=== PATIENT | female | born 1955 | race Caucasian/White ===

== ENCOUNTER 2018-09-19 18:07 | Emergency (ER) | payer BC ==
--- NOTE | 2018-09-19 18:33 | ED ---
Upper Extremity Pain - HPI Summary HPI Summary: 63 yo female presents to [facility] with LEFT wrist pain s/p fall. She tells me that about 1 hour [employer] [place] with her hands outstretched. She had immediate pain to her left wrist. Swelling began shortly after. She is right handed. Has not taken anything OTC for her discomfort. Denies numbness or tingling. - History of Current Complaint Chief Complaint: EDExtremityUpper Stated Complaint: LEFT WRIST INJURY PER PT Time Seen by Provider: 09/19/18 18:33 Hx Obtained From: Patient Mechanism Of Injury: Fall From Height Of: - standing Timing: Constant Severity Initially: Moderate Severity Currently: Moderate Pain Location: Wrist - Allergies/Home Medications Allergies/Adverse Reactions: Allergies Allergy/AdvReac Type Severity Reaction Status Date / Time Penicillins Allergy Hives Verified 09/19/18 18:12 Home Medications: Home Medications Venlafaxine CAP (NF) [Effexor CAP (NF)] 75 mg PO DAILY 09/19/18 [History Confirmed 09/19/18] PMH/Surg Hx/FS Hx/Imm Hx Endocrine/Hematology History: Denies: Hx Blood Disorders Cardiovascular History: Denies: Hx Angina, Hx Congestive Heart Failure, Hx Hypertension Respiratory History: Denies: Hx Asthma, Hx Chronic Obstructive Pulmonary Disease (COPD) History: Denies: Hx Dialysis Musculoskeletal History: Denies: Hx Gout Neurological History: Denies: Hx CVA, Hx Headaches Psychiatric History: Reports: Hx Anxiety, Hx Depression Infectious Disease History: No Infectious Disease History: Denies: Traveled Outside the [place] in Last 30 Days - Family History Known Family History: Positive: Hypertension - Social History Occupation: Employed Full-time Lives: With Family Alcohol Use: Occasionally Substance Use Type: Reports: None Smoking Status (MU): Never Smoked Tobacco Review of Systems Constitutional: Negative Respiratory: Negative Gastrointestinal: Negative Genitourinary: Negative Musculoskeletal: Other - Left wrist injury Skin: Negative Neurological: Negative Psychological: Normal All Other Systems Reviewed And Are Negative: Yes Physical Exam - Summary Physical Exam Summary: GENERAL: NAD. WDWN. No pain distress. SKIN: No rashes, sores, lesions, or open wounds. CHEST: No accessory muscle use. Breathing comfortably and in no distress. CV: Pulses intact radial and ulnar. Cap refill <2seconds MSK: LEFT WRIST: Mild edema and TTP about entire wrist. NTTP hand or forearm. Decreased ROM left wrist due to pain. NEURO: Alert. Sensations intact hand and all fingers. PSYCH: Age appropriate behavior. Triage Information Reviewed: Yes Vital Signs On Initial Exam: Initial Vitals Temp Pulse Resp BP Pulse Ox 99.1 F 95 17 150/100 98 09/19/18 18:08 09/19/18 18:08 09/19/18 18:08 09/19/18 18:08 09/19/18 18:08 Vital Signs Reviewed: Yes Procedures - Splinting Left Upper Extremity Hand-Made Type: orthoglass Splint: volar Pre-Proc Neuro Vasc Exam: normal Post-Proc Neuro Vasc Exam: normal Diagnostics - Vital Signs Vital Signs Temp Pulse Resp BP Pulse Ox 09/19/18 18:08 99.1 F 95 17 150/100 98 - Laboratory Lab Statement: Any lab studies that have been ordered have been reviewed, and results considered in the medical decision making process. Course/Dx - Course Course Of Treatment: XR wet read with impacted distal radius fracture. Pt was placed in a volar wrist splint and advised to RICE and take ibuprofen/tylenol for discomfort as directed. Her and her live in [place], [place] and wish to f/u with an Orthopedist in [facility] - recommend f/u within 1 week. - Diagnoses Provider Diagnoses: Left wrist fracture Discharge - Sign-Out/Discharge Documenting (check all that apply): Patient Departure Patient Received Moderate/Deep Sedation with Procedure: No - Discharge Plan Condition: Stable Disposition: HOME Patient Education Materials: Wrist Fracture in Adults (ED) Referrals: Anil GUAMAN,Lawanda Stevens [Primary Care Provider] - Additional Instructions: If you develop a fever, shortness of breath, chest pain, new or worsening symptoms - please call your PCP or go to the ED immediately. Your blood pressure was high at todays visit. Please see your primary provider within 4 weeks for recheck and re-evaluation. 1) Rest, Ice, and elevate your wrist to decrease pain and swelling 2) May take tylenol/ibuprofen as directed for discomfort 3) Please keep the splint clean, dry, and intact until you are able to see Orthopedics. 4) Please follow up with an Orthopedic doctor within 1 week in [place] for further evaluation and treatment of your wrist fracture - Billing Disposition and Condition Condition: STABLE Disposition: Home - Attestation Statements Provider Attestation: I am administratively signing this document. I was available for consultation for this patient. I did not evaluate the patient, did not have a doctor/patient relationship with the patient, or participate in any medical decision making or disposition decisions unless I am specifically named in the chart as having consulted on the patient. If I have consulted on the patient, please see my own ED note on the patient encounter. Lizz Antonio MD
[2018-09-19] MEDS ORDERED: Ibuprofen TAB* 600 MG PO ONE (19:05)
[2018-09-19 19:34] VITALS: BP 162/100
== END 2018-09-19 19:33 | disposition home or self-care (01) ==
LOC: ED 18:07
DX: S52.502A Unspecified fracture of the lower end of left radius, initial encounter for closed fracture (principal); W19.XXXA Unspecified fall, initial encounter; Y93.01 Activity, walking, marching and hiking; Y92.89 Other specified places as the place of occurrence of the external cause; Z88.0 Allergy status to penicillin; Z79.899 Other long term (current) drug therapy; F41.9 Anxiety disorder, unspecified; F32.9 Major depressive disorder, single episode, unspecified
CPT/HCPCS: 99282; A9270-GY